=== PATIENT | female | born 1940 | race Hispanic/Latino ===

== ENCOUNTER 2018-04-08 13:06 | Emergency (ER) | payer OTHER ==
--- OUTSIDE RECORDS SUMMARY | 2018-04-08 13:09 | XMS REPORT ---
:1940 Author Organization eClinicalWorks Care Team Providers Name Role Phone Leonel Kal Provider Role Unavailable Allergies No Known Allergies Problems Problem Type Condition Code Onset Dates Condition Status Assessment Cataract of right eye, unspecified H26.9 Active cataract type Problem Hyperlipidemia, mixed E78.2 Active Problem Cataract of right eye, unspecified H26.9 Active cataract type Problem Diabetes type 2, uncontrolled E11.65 Active Assessment Hyperlipidemia, mixed E78.2 Active Assessment Thrombocytopenia D69.6 Active Problem Thrombocytopenia D69.6 Active Assessment Diabetes type 2, uncontrolled E11.65 Active Medications Medication Code Code Instructions Start End Date Status Dosage System Date [facility] 62166350015 81 MG Orally Active 1 tablet Once a day Crestor [facility] 41485140667 10 MG Orally Active 1 tablet Once a day Metformin HCl [facility] 53805246586 1000 MG Orally Active 1 tablet Twice a day with meals Results No Known Results Summary Purpose eClinicalWorks Submission
--- OUTSIDE RECORDS SUMMARY | 2018-04-08 13:09 | XMS REPORT ---
:1940 Author Organization eClinicalWorks Care Team Providers Name Role Phone Monroe Castanedah Provider Role Unavailable Allergies, Adverse Reactions, Alerts Substance Reaction Event Type N.K.D.A. Info Not Available Non Drug Allergy Problems Problem Type Condition Code Onset Dates Condition Status Assessment Thrombocytopenia D69.6 Active Assessment Cataract of right eye, unspecified H26.9 Active cataract type Problem Hyperlipidemia, mixed E78.2 Active Problem Cataract of right eye, unspecified H26.9 Active cataract type Problem Diabetes type 2, uncontrolled E11.65 Active Assessment Diabetes type 2, uncontrolled E11.65 Active Assessment Hyperlipidemia, mixed E78.2 Active Problem Thrombocytopenia D69.6 Active Medications Medication Code Code Instructions Start End Date Status Dosage System Date Metformin HCl [facility] 77628449595 1000 MG Orally Active 1 tablet Twice a day with meals Crestor [facility] 75839628005 10 MG Orally Active 1 tablet Once a day Aspir-81 [facility] 69386250415 81 MG Orally Active 1 tablet Once a day Results No Known Results Summary Purpose eClinicalWorks Submission
[2018-04-08 14:23] LABS: Absolute Lymphocytes (CBC) 1.9 K/uL (0.7-4.9); Absolute Monocytes 0.5 K/uL (0.1-1.3); Absolute Neutrophil 3.5 K/uL (1.8-8.0); Basophils % 0.5 % (0-1.3); Eosinophils % 1.7 % (0-4.4); Hematocrit 42.9 % (36.0-45.0); MCH 31.9 pg (27.0-35.0); MCV 93.3 fL (80-100); MPV 10.6 fL (7.6-11.3); Monocytes % 7.5 % (3.3-12.3); RBC Red Blood Cell Count 4.59 M/uL (3.86-4.86)
[2018-04-08 14:32] LABS: Potassium 4.2 mmol/L (3.5-5.1)
--- NOTE | 2018-04-08 14:41 | RAD REPORT ---
EXAM DESCRIPTION: RAD - Foot Right 3 View - 04/08/2018 2:27 pm CLINICAL HISTORY: SWELLING Soft tissue wound COMPARISON: No comparisons FINDINGS: Small calcaneal spurs are present. No fracture, dislocation or radiographic finding to ind icate osteomyelitis. No soft tissue gas.
[2018-04-08] MEDS ORDERED: CLINDAMYCIN 600MG/D5W 600 MG/50 ML BAG IV ONE (14:42)
--- NOTE | 2018-04-08 14:58 | EDPHYS ---
Physician Documentation [facility] Name: Mary Das Age: 77 yrs Sex: Female : 1940 Arrival Date: 04/08/2018 Time: 13:09 Bed 19 Private MD: Jessica Weeks ED Physician Henrique Aleman HPI: 04/08 13:33 This 77 yrs old Female presents to ER via Ambulatory with complaints of Foot cp Pain - INFECTION. 13:33 The patient presents with swelling, tenderness. The complaints affect the dorsum of cp right foot. 13:33 Context: resulted from an unknown cause, the patient can fully bear weight, the patient cp is able to ambulate, Problem is a result from a previous injury: No. 13:33 Onset: The symptoms/episode began/occurred 3 day(s) ago. Associated signs and symptoms: cp Pertinent positives: swelling, warmth, Pertinent negatives calf tenderness, fever, numbness, weakness. Treatment prior to arrival includes: no previous treatment. Historical: - Allergies: 13:14 No Known Allergies; hb - PMHx: 13:14 Diabetes - NIDDM; hb - Immunization history:: Adult Immunizations up to date. - Social history:: Smoking status: Patient/guardian denies using tobacco. - Ebola Screening: : No symptoms or risks identified at this time. ROS: 13:40 Constitutional: Negative for body aches, chills, fever, poor PO intake. cp 13:40 Eyes: Negative for injury, pain, redness, and discharge. cp 13:40 Cardiovascular: Negative for chest pain, edema, palpitations. 13:40 Respiratory: Negative for cough, shortness of breath, wheezing. 13:40 Abdomen/GI: Negative for abdominal pain, nausea, vomiting, and diarrhea. 13:40 MS/extremity: Negative for injury or acute deformity, decreased range of motion. 13:40 Skin: Positive for abscess, cellulitis, of the web space between right fourth and fifth toes. 13:40 All other systems are negative. Exam: 13:47 Constitutional: The patient appears in no acute distress, alert, awake, non-toxic, well cp developed, well nourished. 13:47 Head/Face: Normocephalic, atraumatic. cp 13:47 Eyes: Periorbital structures: appear normal, Conjunctiva: normal, no exudate, no injection, Sclera: no appreciated abnormality, Lids and lashes: appear normal, bilaterally. 13:47 ENT: External ear(s): are unremarkable, Nose: is normal, Mouth: Lips: moist, Posterior pharynx: is normal, airway is patent. 13:47 Chest/axilla: Inspection: normal, Palpation: is normal, no crepitus, no tenderness. 13:47 Cardiovascular: Rate: normal, Rhythm: regular, Pulses: Pulses are 2+ in right dorsalis pedis artery and left dorsalis pedis artery. 13:47 Respiratory: the patient does not display signs of respiratory distress, Respirations: normal, no use of accessory muscles, no retractions, no splinting, no tachypnea, labored breathing, is not present, Breath sounds: are clear throughout, no decreased breath sounds, no stridor, no wheezing. 13:47 Abdomen/GI: Exam negative for discomfort, distension, guarding, Inspection: abdomen appears normal. 13:47 Skin: abscess, that is small, of the dorsal side web space of right fourth and fifth toes, with surrounding cellulitis. Vital Signs: 13:12 BP 147 / 62; Pulse 87; Resp 16; Temp 97.9; Pulse Ox 100% on R/A; Pain 0/10; hb 14:16 BP 147 / 70; Pulse 66; Resp 16; Pulse Ox 99% ; Pain 0/10; em MDM: 13:18 Patient medically screened. cp 14:00 Differential diagnosis: osteomyelitis, cellulitis, abscess. cp 14:55 Data reviewed: vital signs, nurses notes, lab test result(s), radiologic studies, plain cp films. 14:55 Test interpretation: by ED physician or midlevel provider: plain radiologic studies. cp 04/08 13:33 Order name: Wound Culture cp 04/08 13:33 Order name: CBC with Diff cp 04/08 13:33 Order name: XRAY Foot RIGHT 3 View cp 04/08 13:33 Order name: BMP cp 04/08 14:48 Order name: CBC with Automated Diff; Complete Time: 14:51 EDMS 04/08 14:49 Order name: Basic Metabolic Panel; Complete Time: 14:51 EDMS 04/08 14:51 Interpretation: Normal except: CL 108; GLUC 143; GFR 82. cp 04/08 13:33 Order name: IV; Complete Time: 14:17 cp 04/08 14:49 Order name: RAD; Complete Time: 14:51 EDMS Administered Medications: 14:44 Drug: Clindamycin 600 mg Route: IVPB; Infused Over: 30 mins; Site: right antecubital; em 15:16 Follow up: Response: No adverse reaction; IV Status: Completed infusion; IV Intake: 50mlem Disposition: 04/08/18 14:58 Discharged to Home. Impression: Cutaneous abscess of right foot, Cellulitis of right lower limb - Right Foot. - Condition is Stable. - Discharge Instructions: Skin Abscess, Cellulitis, Adult. - Prescriptions for Clindamycin HCl 300 mg Oral Capsule - take 1 capsule by ORAL route every 6 hours for 10 days; 40 capsule. Bactrim DS 800- 160 mg Oral Tablet - take 1 tablet by ORAL route every 12 hours for 10 days; 20 tablet. - Medication Reconciliation Form, Thank You Letter, Antibiotic Education, Prescription Opioid Use form. - Follow up: Private Physician; When: 2 - 3 days; Reason: Wound Recheck. - Problem is new. - Symptoms have improved. Addendum: 04/10/2018 07:24 Co-signature as Attending Physician, Henrique Aleman MD I agree with the assessment and c yang plan of care. Signatures: Dispatcher [employer] EDHenrique Amador MD MD cha Munoz, Edgar, GOLD NIB GRINDER GOLD NIB GRINDER em Henrique Dickson, PA PA Gita Bullard, RN RN Corrections: (The following items were deleted from the chart) 04/08 15:24 14:58 04/08/2018 14:58 Discharged to Home. Impression: Cutaneous abscess of right foot; em Cellulitis of right lower limb - Right Foot. Condition is Stable. Forms are Medication Reconciliation Form, Thank You Letter, Antibiotic Education, Prescription Opioid Use. Follow up: Private Physician; When: 2 - 3 days; Reason: Wound Recheck. Problem is new. Symptoms have improved. cp
--- NOTE | 2018-04-08 14:58 | ER ---
Nurse's Notes [facility] Name: Mary Das Age: 77 yrs Sex: Female : 1940 Arrival Date: 04/08/2018 Time: 13:09 Bed 19 Private MD: Jessica Weeks Diagnosis: Cutaneous abscess of right foot;Cellulitis of right lower limb-Right Foot Presentation: 04/08 13:12 Presenting complaint: Wound on top of right root x 3 days. Denies injury. Transition of hb care: patient was not received from another setting of care. Onset of symptoms was April 08, 2018. Risk Assessment: Do you want to hurt yourself or someone else? Patient reports no desire to harm self or others. Initial Sepsis Screen: Does the patient meet any 2 criteria? No. Patient's initial sepsis screen is negative. Does the patient have a suspected source of infection? No. Patient's initial sepsis screen is negative. Care prior to arrival: None. 13:12 Method Of Arrival: Ambulatory hb 13:12 Acuity: HANS 4 hb Historical: - Allergies: 13:14 No Known Allergies; hb - PMHx: 13:14 Diabetes - NIDDM; hb - Immunization history:: Adult Immunizations up to date. - Social history:: Smoking status: Patient/guardian denies using tobacco. - Ebola Screening: : No symptoms or risks identified at this time. Screenin:50 Abuse screen: Denies threats or abuse. Nutritional screening: No deficits noted. em Tuberculosis screening: No symptoms or risk factors identified. Fall Risk None identified. Assessment: 13:50 General: Appears in no apparent distress. comfortable, Behavior is calm, cooperative, em Denies fever. Pain: Denies pain. Neuro: Level of Consciousness is awake, alert, obeys commands, Oriented to person, place, time, situation. Cardiovascular: Denies chest pain, Capillary refill < 3 seconds Patient's skin is warm and dry. Respiratory: Airway is patent Respiratory effort is even, unlabored, Respiratory pattern is regular, symmetrical. GI: Patient currently denies nausea, vomiting. : No signs and/or symptoms were reported regarding the genitourinary system. EENT: No signs and/or symptoms were reported regarding the EENT system. Derm: Skin is intact, Skin is pink, warm \T\ dry. Abscess located on dorsum of right foot is dime sized, has purulent drainage, is hot to touch, is red. Musculoskeletal: 14:00 Reassessment: I agree with previous assessment. hb 14:55 Reassessment: Patient appears in no apparent distress at this time. Patient and/or em family updated on plan of care and expected duration. Pain level reassessed. Patient is alert, oriented x 3, equal unlabored respirations, skin warm/dry/pink. pt will be discharged after completion of antibiotics Patient denies pain at this time. Vital Signs: 13:12 BP 147 / 62; Pulse 87; Resp 16; Temp 97.9; Pulse Ox 100% on R/A; Pain 0/10; hb 14:16 BP 147 / 70; Pulse 66; Resp 16; Pulse Ox 99% ; Pain 0/10; em ED Course: 13:09 Patient arrived in ED. sb2 13:10 Jessica Weeks MD is Private Physician. sb2 13:12 Triage completed. hb 13:14 Arm band placed on left wrist. hb 13:18 Henrique Dickson PA is PHCP. cp 13:18 Henrique Aleman MD is Attending Physician. cp 13:40 Willam Caceres LVN is Primary Nurse. em 13:50 Patient has correct armband on for positive identification. Bed in low position. Call em light in reach. Adult w/ patient. 13:55 Inserted saline lock: 20 gauge in right antecubital area, using aseptic technique. em Blood collected. 13:55 Initial lab(s) drawn, by me, sent to lab. Wound culture swab sent to lab. em 15:15 No provider procedures requiring assistance completed. em 15:23 IV discontinued, intact, bleeding controlled, No redness/swelling at site. Pressure em dressing applied. Administered Medications: 14:44 Drug: Clindamycin 600 mg Route: IVPB; Infused Over: 30 mins; Site: right antecubital; em 15:16 Follow up: Response: No adverse reaction; IV Status: Completed infusion; IV Intake: 50mlem Intake: 15:16 IV: 50ml; Total: 50ml. em Outcome: 14:58 Discharge ordered by . cp 15:23 Discharged to home ambulatory, with family. em 15:23 Condition: good 15:23 Discharge instructions given to patient, family, Instructed on discharge instructions, follow up and referral plans. medication usage, Demonstrated understanding of instructions, follow-up care, medications, Prescriptions given X 2. 15:24 Patient left the ED. em Signatures: Willam Caceres, RUIZ HAYWARDN em Henrique Dickson PA PA cp Baxter, Heather, RN RN Melissa Tao sb2
== END 2018-04-08 15:24 | disposition home or self-care (01) ==
LOC: ER 13:06
DX: L02.611 Cutaneous abscess of right foot (principal); L03.115 Cellulitis of right lower limb; M77.31 Calcaneal spur, right foot
CPT/HCPCS: 36415; 80048; 85025; 87070; 87205; 96365; 99284

== ENCOUNTER 2022-10-23 10:50 | Emergency (ER) | payer OTHER ==
--- OUTSIDE RECORDS SUMMARY | 2022-10-23 10:53 | XMS REPORT | Continuity of Care Document ---
:1940 Author Organization [facility] t Address [address] [place] [address] Care Team Providers Name Role Phone Kal Castaneda Attending Clinician Unavailable Payers Payer Name Policy Type Policy Number Effective Date Expiration Date S [facility] [id number] 2017 [facility] 00:00:00 [facility] MEDICARE MB [id number] 2019 [facility] NOVITAS 00:00:00 [facility] Problems Condition Condition Condition Status Onset Resolution Last Treating Co mments Source Name Details Category Date Date Treatment Clinician Date Mixed Hyperlipid Problem Commo n hyperlipid emia, Spirit emia mixed [facility] Type II Diabetes Problem Common diabetes type 2, Spirit mellitus uncontroll - [facility] I uncontroll ed [facility] [id number] Thrombocyt Problem Co mmon openia [facility] [id number] Cataract Problem Comm on of right Spirit eye, - [facility] unspecifie [facility] cataract [facility] Allergies, Adverse Reactions, Alerts This patient has no known allergies or adverse reactions. Social History Social Habit Start Date Stop Date Quantity Comments Source History of Tobacco Use Co mmon [facility] Sex Assigned At Com [facility] Smoking Status Start Date Stop Date Source Never Smoker [facility] Medications Ordered Filled Start Stop Current Ordering Indication Dosage Frequency Signature Comments Components Source Medication Medication Date Date Medication? Clinician (SIG) Name Name Didi Tolbert Yes Kal 1 tablet Com mon Castaneda [facility] - [facility] Metformin Metformin Yes Kal TAKE 1 C ommon HCl HCl Castaneda TABLET BY Spirit MOUTH - [facility] TWICE St DAILY WITH [facility] Rosuvastati Rosuvastati Yes Kal TAKE 1 Common n Calcium n Calcium Castaneda TABLET BY Spirit MOUTH - [facility] EVERY DAY [facility] Metformin Metformin Yes Kal 1 tablet Common HCl HCl Castaneda with meals Spirit [facility] Crestor 5 Crestor 5 No 1{table QD Crestor 5 MG MG t} MG metFORMIN metFORMIN No 1{table BID metFORMIN HCl 1000 MG HCl 1000 MG t_with_ HCl 1000 meals} MG metFORMIN metFORMIN No metFORMIN HCl 1000 MG HCl 1000 MG HCl 1000 MG Crestor 10 Crestor 10 No 1{table QD Crestor 10 MG MG t} MG metFORMIN metFORMIN No 1{table BID metFORMIN HCl 1000 MG HCl 1000 MG t_with_ HCl 1000 meals} MG Crestor 10 Crestor 10 No 1{table QD Crestor 10 MG MG t} MG Rosuvastati Rosuvastati No Rosuvastat n Calcium n Calcium in Calcium 10 MG 10 MG 10 MG Rosuvastati Rosuvastati No Rosuvastat n Calcium n Calcium in Calcium 10 MG 10 MG 10 MG Crestor 10 Crestor 10 No 1{table QD Crestor 10 MG MG t} MG metFORMIN metFORMIN No 1{table BID metFORMIN HCl 1000 MG HCl 1000 MG t_with_ HCl 1000 meals} MG Rosuvastati Rosuvastati No Rosuvastat n Calcium n Calcium in Calcium 10 MG 10 MG 10 MG Crestor 10 Crestor 10 No 1{table QD Crestor 10 MG MG t} MG metFORMIN metFORMIN No 1{table BID metFORMIN HCl 1000 MG HCl 1000 MG t_with_ HCl 1000 meals} MG Rosuvastati Rosuvastati No Rosuvastat n Calcium n Calcium in Calcium 10 MG 10 MG 10 MG Crestor 10 Crestor 10 No 1{table QD Crestor 10 MG MG t} MG metFORMIN metFORMIN No 1{table BID metFORMIN HCl 1000 MG HCl 1000 MG t_with_ HCl 1000 meals} MG metFORMIN metFORMIN No 1{table BID metFORMIN HCl 1000 MG HCl 1000 MG t_with_ HCl 1000 meals} MG Crestor 10 Crestor 10 No 1{table QD Crestor 10 MG MG t} MG metFORMIN metFORMIN No 1{table BID metFORMIN HCl 1000 MG HCl 1000 MG t_with_ HCl 1000 meals} MG Crestor 10 Crestor 10 No 1{table QD Crestor 10 MG MG t} MG metFORMIN metFORMIN No 1{table BID metFORMIN HCl 1000 MG HCl 1000 MG t_with_ HCl 1000 meals} MG Crestor 10 Crestor 10 No 1{table QD Crestor 10 MG MG t} MG Vital Signs Vital Name Observation Time Observation Value Comments Source height 2022-02-17 13:50:00 64 [in_i] Common [facility] weight 2022-02-17 13:50:00 124.3 [lb_av] [facility] temperature 2022-02-17 13:50:00 97.6 [degF] [facility] bmi 2022-02-17 13:50:00 21.33 kg/m2 [facility] oximetry 2022-02-17 13:50:00 98 % [facility] respiratory rate 2022-02-17 13:50:00 18 /min Comm on [facility] blood pressure 2022-02-17 13:50:00 129 mm[Hg] Common [facility] - systolic [facility] blood pressure 2022-02-17 13:50:00 61 mm[Hg] Common [facility] - diastolic [facility] height 2021-10-15 14:40:00 64 [in_i] [facility] weight 2021-10-15 14:40:00 121.5 [lb_av] [facility] temperature 2021-10-15 14:40:00 98.1 [degF] [facility] bmi 2021-10-15 14:40:00 20.85 kg/m2 [facility] oximetry 2021-10-15 14:40:00 100 % [facility] respiratory rate 2021-10-15 14:40:00 18 /min Comm on [facility] blood pressure 2021-10-15 14:40:00 137 mm[Hg] Common [facility] - systolic [facility] blood pressure 2021-10-15 14:40:00 60 mm[Hg] Common [facility] - diastolic [facility] height 2021-10-15 14:30:00 64 [in_i] Common S pirit - [facility] weight 2021-10-15 14:30:00 121.5 [lb_av] [facility] temperature 2021-10-15 14:30:00 98.1 [degF] Common S pirit - [facility] bmi 2021-10-15 14:30:00 20.85 kg/m2 Common S pirit [facility] oximetry 2021-10-15 14:30:00 100 % Common S pirit [facility] respiratory rate 2021-10-15 14:30:00 18 /min Comm on [facility] blood pressure 2021-10-15 14:30:00 137 mm[Hg] Common [facility] - systolic [facility] blood pressure 2021-10-15 14:30:00 60 mm[Hg] Common [facility] - diastolic [facility] height 2021-06-16 10:30:00 64 [in_i] [facility] 2021-06-16 10:30:00 118.0 [lb_av] [facility] temperature 2021-06-16 10:30:00 97.7 [degF] Common S pirit [facility] bmi 2021-06-16 10:30:00 20.25 kg/m2 Common S pirit [facility] oximetry 2021-06-16 10:30:00 99 % Common S pirit [facility] respiratory rate 2021-06-16 10:30:00 18 /min Comm on [facility] blood pressure 2021-06-16 10:30:00 132 mm[Hg] Common Spirit - systolic [facility] blood pressure 2021-06-16 10:30:00 61 mm[Hg] Common [facility] - diastolic [facility] height 2021-02-10 10:10:00 64 [in_i] Common S pirit [facility] weight 2021-02-10 10:10:00 122.5 [lb_av] Common [facility] temperature 2021-02-10 10:10:00 97.3 [degF] Common [facility] bmi 2021-02-10 10:10:00 21.02 kg/m2 Common [facility] oximetry 2021-02-10 10:10:00 99 % Common [facility] respiratory rate 2021-02-10 10:10:00 17 /min Comm on [facility] blood pressure 2021-02-10 10:10:00 134 mm[Hg] Common [facility] systolic [facility] blood pressure 2021-02-10 10:10:00 71 mm[Hg] Common [facility] diastolic [facility] Procedures This patient has no known procedures. Encounters Start End Encounter Admission Attending Care Care Encounter Source Date/Time Date/Time Type Type Clinicians Facility Department ID 2022-08-16 Outpatient Castaneda, STLMLC STLMLC [id number] Common 08:45:00 Kal [id number] [facility] 2022-06-16 Outpatient Castaneda, STLMLC STLMLC [id number] Common 09:52:00 Kal [id number] [facility] 2021-06-03 Outpatient Castaneda, STLMLC STLMLC [id number] Common 13:56:26 Kal [id number] [facility] 2021-06-03 Outpatient Castaneda, STLMLC STLMLC [id number] Common 12:06:24 Kal [id number] [facility] 2021-06-03 Outpatient Castaneda, STLMLC STLMLC [id number] Common 11:22:33 Kal [id number] [facility] 2022-02-17 2022-02-17 OFFICE STLMLC STLMLC [id number] Co mmon 00:00:00 00:00:00 VISIT [facility] 4 [facility] 2021-10-19 2021-10-19 (TEL) STLMLC STLMLC [id number] Co mmon 00:00:00 00:00:00 [facility] 2021-10-15 2021-10-15 SUB ANNUAL STLMLC STLMLC [id number] Common 00:00:00 00:00:[address] [facility] WELLNESS - CHI VISIT [facility] 2021-10-15 2021-10-15 OFFICE STLMLC STLMLC [id number] Co mmon 00:00:00 00:00:[address] [facility] ESTAB PT - CHI LEVEL 4 [facility] 2021-08-13 2021-08-13 (TEL) STLMLC STLMLC [id number] Co mmon 00:00:00 00:00:00 [facility] 2021-07-23 2021-07-23 (TEL) STLMLC STLMLC [id number] Co mmon 00:00:00 00:00:00 [facility] 2021-06-16 2021-06-16 OFFICE STLMLC STLMLC [id number] Co mmon 00:00:00 00:00:00 VISIT EST Spir it PT LEVEL 3 - [facility] 2021-02-10 2021-02-10 OFFICE STLMLC STLMLC [id number] Co mmon 00:00:00 00:00:[address] [facility] ESTAB PT - CHI LEVEL 4 [facility] 2020-10-07 2020-10-07 Outpatient STLMLC STLMLC [id number] Common 00:00:00 00:00:00 [facility] 2020-10-07 2020-10-07 Outpatient STLMLC STLMLC [id number] Common 00:00:00 00:00:00 [facility] 2020-03-27 2020-03-27 Outpatient STLMLC STLMLC [id number] Common 00:00:00 00:00:00 [facility] 2019-09-26 2019-09-26 [id number] Common 13:30:00 13:30:[address] Family - [facility] 2019-09-26 2019-09-26 [facility] [id number] Common 13:30:00 13:30:[address] [facility] 2019-09-19 2019-09-19 [facility] [id number] Common 14:34:00 14:34:[address] [facility] 2019-03-14 2019-03-14 [facility] [id number] Common 09:15:00 09:15:[address] [facility] 2018-12-15 2018-12-15 [facility] [id number] Common 09:30:00 09:30:[address] [facility] 2018-08-16 2018-08-16 [facility] 23 Common 09:30:00 09:30:[address] [facility] 2018-04-17 2018-04-17 [facility] [id number] Common 10:30:00 10:30:[address] [facility] 2017-12-16 2017-12-16 [facility] [id number] Common 09:30:00 09:30:[address] [facility] 2017-08-16 2017-08-16 [facility] [id number] Common 09:30:00 09:30:[address] [facility] Results This patient has no known results.
[2022-10-23 11:46] LABS: Absolute Lymphocytes (CBC) 1.6 K/uL (0.7-4.9); Hematocrit 41.4 % (36.0-45.0); Lymphocytes % 23.4 % (15.3-44.8); MCV 94.4 fL (80-100); MPV 9.1 fL (7.6-11.3); RBC Red Blood Cell Count 4.38 M/uL (3.86-4.86)
[2022-10-23 11:51] LABS: Protime INR 1.01
[2022-10-23] MEDS ORDERED: NA CHLORIDE 0.9% 1,000 ML ONE (11:53)
[2022-10-23] MEDS ORDERED: MECLIZINE HCL 12.5 MG TAB ONE (11:53)
[2022-10-23 12:05] LABS: Bilirubin Direct 0.1 mg/dL (0-0.2); Bilirubin Indirect, Calculated 0.4 mg/dL (0.2-0.8); Bilirubin Total 0.5 mg/dL (0.2-1.0); Magnesium 2.1 mg/dL (1.6-2.4); Potassium 3.4 mEq/L (3.5-5.1); Protein, Total 7.6 g/dL (6.4-8.2); Troponin High Sensitivity 5.1 pg/mL (<58.9)
--- NOTE | 2022-10-23 12:06 | RAD REPORT ---
EXAM DESCRIPTION: RAD - Chest Single View - 10/23/2022 11:59 am CLINICAL HISTORY: dizziness Chest pain. COMPARISON: CHEST SINGLE VIEW dated 10/29/2009 FINDINGS: Portable technique limits examination quality. The lungs are emphysematous but grossly clear. The heart is upper limit of normal in size. No displac ed fractures. IMPRESSION: No acute intrathoracic process suspected.
--- NOTE | 2022-10-23 12:31 | RAD REPORT ---
EXAM DESCRIPTION: CT - Head Brain Wo Cont - 10/23/2022 12:22 pm CLINICAL HISTORY: DIZZINESS Headache, drowsiness COMPARISON: Head angio dated 10/23/2022 TECHNIQUE: All CT scans are performed using dose optimization technique as appropriate and may inclu de automated exposure control or mA/KV adjustment according to patient size. FINDINGS: No intracranial hemorrhage, hydrocephalus or extra-axial fluid collection.Mild generalized brain atrophy. 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 No areas of brain edema or evidence of midline shift. Left vertebral atherosclerosis. The paranasal sinuses and mastoids are clear. The calvarium is intact. IMPRESSION: No acute intracranial abnormality.
--- NOTE | 2022-10-23 12:32 | RAD REPORT ---
EXAM DESCRIPTION: CT - Head angio - 10/23/2022 12:24 pm CLINICAL HISTORY: DIZZINESS Headache, drowsiness COMPARISON: No comparisons TECHNIQUE: CT angiography of the head was performed with MIPs. All CT scans are performed using dose optimization technique as appropriate and may include automated exposure control or mA/KV adjustment according to patient size. FINDINGS: No evidence of large vessel occlusion. No evidence of aneurysm is detected. No flow-limiti ng stenosis or vascular malformation identified. Antegrade flow is seen in the vertebral arteries. The vertebral arteries are codominant. The visualized dural venous sinuses are patent. IMPRESSION: No significant flow abnormality is detected.
--- NOTE | 2022-10-23 12:35 | RAD REPORT ---
EXAM DESCRIPTION: CT - Neck Angio - 10/23/2022 12:24 pm CLINICAL HISTORY: dizziness Headache, drowsiness. COMPARISON: No comparisons TECHNIQUE: CT angiography of the neck vessels was performed with MIPs. All CT scans are performed using dose optimization technique as appropriate and may include automated exposure control or mA/KV adjustment according to patient size. FINDINGS: A left aortic arch is identified with normal three vessel configuration of the great vesse ls. No significant flow abnormality is seen of the common carotid bilaterally. Small calcified plaque in both bulbs. No significant stenosis is identified involving the cervical se gments of both internal carotid arteries. Normal flow is seen within both vertebral arteries. IMPRESSION: No significant flow abnormality of the neck vessels is identified. NASCET criteria used. Mild 0-49% stenosis Moderate 50-69% stenosis Severe 70-99% stenosis
[2022-10-23 12:50] LABS: Urine Bilirubin NEGATIVE (Negative); Urine Blood Negative (Negative); Urine Clarity Clear (Clear); Urine Color Colorless (Yellow); Urine Glucose NEGATIVE (Negative); Urine Protein NEGATIVE (Negative); Urine Urobilinogen Normal (Normal); Urine pH 6.5 (5.0-7.0)
--- NOTE | 2022-10-23 13:18 | EDPHYS ---
Physician Documentation [facility] Name: Mary Das Age: 81 yrs Sex: Female : 1940 Arrival Date: 10/23/2022 Time: 10:50 Bed 19 Private MD: ED Physician Justin Escobar HPI: 10/23 13:13 This 81 yrs old Female presents to ER via Wheelchair with complaints of rn Dizziness, General Weakness, Fall Injury, BLOOD SUGAR ISSUES, FALL INJURY W/NO LOC. 13:13 The patient presents with dizziness, feeling faint, feeling off balance. Onset: The rn symptoms/episode began/occurred 4 day(s) ago. Context: occurred at an unknown location, occurred while the patient was standing. Modifying factors: The symptoms are alleviated by lying down, the symptoms are aggravated by standing up, changing position. Associated signs and symptoms: Pertinent negatives: abdominal pain, chest pain, confusion, diaphoresis, headache, seizure, shortness of breath, syncope, tingling, vomiting. Severity of symptoms: At their worst the symptoms were moderate in the emergency department the symptoms have improved. The patient has not experienced similar symptoms in the past. The patient has not recently seen a physician. Patient and family report dizziness, intermittent for 4 days, fell yesterday due to dizziness, no LOC, no head injury, no trauma noted. No fever/nausea/vomiting/diarrhea. No cough. No sob. Reports glucose 200s. No focal neuro complaint. . Historical: - Allergies: 11:28 No Known Allergies; kr3 - PMHx: 11:28 Diabetes - NIDDM; Hypercholesterolemia; kr3 - Immunization history:: Adult Immunizations up to date. - Social history:: Smoking status: Patient denies any tobacco usage or history of. - Immunization history: Last tetanus immunization: < 10 years ago. - Family history:: not pertinent. - Hospitalizations: : No recent hospitalization is reported. ROS: 13:13 Constitutional: Negative for fever, chills, and weight loss, Eyes: Negative for injury, rn pain, redness, and discharge, Neck: Negative for injury, pain, and swelling, Cardiovascular: Negative for chest pain, palpitations, and edema, Respiratory: Negative for shortness of breath, cough, wheezing, and pleuritic chest pain, Abdomen/GI: Negative for abdominal pain, nausea, vomiting, diarrhea, and constipation, Back: Negative for injury and pain, : Negative for injury, bleeding, discharge, and swelling, MS/Extremity: Negative for injury and deformity, Skin: Negative for injury, rash, and discoloration, Neuro: Negative for headache, numbness, tingling, and seizure. Exam: 13:13 Constitutional: This is a well developed, well nourished patient who is awake, alert, rn and in no acute distress. Able to sit up in bed without ataxia or assistance. Head/Face: Normocephalic, atraumatic. Eyes: Pupils equal round and reactive to light, extra-ocular motions intact. Neck: No Meningismus. Cardiovascular: Regular rate and rhythm. No pulse deficits. Respiratory: No increased work of breathing, no retractions or nasal flaring. Abdomen/GI: Soft, non-tender Skin: Warm, dry MS/ Extremity: Pulses equal, no cyanosis Neuro: Awake and alert, GCS 15, oriented to person, place, time, and situation. Cranial nerves II-XII grossly intact. Motor strength 5/5 in all extremities. Sensory grossly intact. Cerebellar exam normal. No truncal ataxia. Vital Signs: 11:24 BP 163 / 65; Pulse 77; Resp 18; Temp 97.9; Pulse Ox 99% ; Weight 52.16 kg; Height 5 ft. kr3 4 in. ; Pain 0/10; 12:42 BP 147 / 63; Pulse 70; Resp 16; Pulse Ox 100% on R/A; sg5 13:21 BP 160 / 60; Pulse 69; Resp 16; Pulse Ox 98% on R/A; sg5 11:24 Body Mass Index 19.74 (52.16 kg, 162.56 cm) kr3 11:24 Pain Scale: Adult kr3 [place]ora Coma Score: 12:41 Eye Response: spontaneous(4). Motor Response: obeys commands(6). Verbal Response: sg5 oriented(5). Total: 15. Trauma Score (Adult): 12:41 Eye Response: spontaneous(1); Verbal Response: oriented(1); Motor Response: obeys sg5 commands(2); Systolic BP: > 89 mm Hg(4); Respiratory Rate: 10 to 29 per min(4); Holiday Score: 15; Trauma Score: 12 MDM: 10:58 Patient medically screened. rn 13:13 Differential diagnosis: cardiac arrhythmia, CVA, generalized weakness, GI bleed, rn hyperventilation, hypovolemia, idiopathic dizziness, near-syncope, TIA, vertigo. Data reviewed: vital signs, nurses notes, lab test result(s), EKG, radiologic studies, CT scan, and as a result, I will discharge patient. Counseling: I had a detailed discussion with the patient and/or guardian regarding: the historical points, exam findings, and any diagnostic results supporting the discharge/admit diagnosis, lab results, radiology results, the need for outpatient follow up, to return to the emergency department if symptoms worsen or persist or if there are any questions or concerns that arise at home. Response to treatment: the patient's symptoms have markedly improved after treatment, and as a result, I will discharge patient. Special discussion: I discussed with the patient/guardian in detail that at this point there is no indication for admission to the hospital. It is understood, however, that if the symptoms persist or worsen the patient needs to return immediately for re-evaluation. Based on the history and exam findings, there is no indication for further emergent testing or inpatient evaluation. I discussed with the patient/guardian the need to see the neurologist for further evaluation of the symptoms. 10/23 11:22 Order name: Basic Metabolic Panel; Complete Time: 12:28 10/23 11:22 Order name: CBC with Diff; Complete Time: 12:28 10/23 11:22 Order name: Hepatic Function; Complete Time: 12:28 10/23 11:22 Order name: Magnesium; Complete Time: 12:28 10/23 11:22 Order name: Protime (+inr); Complete Time: 12:28 rn 10/23 11:22 Order name: Ptt, Activated; Complete Time: 12:28 10/23 11:22 Order name: Troponin High Sensitivity; Complete Time: 12:28 10/23 11:22 Order name: Urinalysis w/ reflexes; Complete Time: 12:51 rn 10/23 11:25 Order name: Glucose, Ancillary Testing; Complete Time: 12:28 EDMS 10/23 11:22 Order name: CT Head Brain wo Cont; Complete Time: 12:47 10/23 11:22 Order name: Chest Single View XRAY; Complete Time: 12:28 10/23 11:22 Order name: Head Angio CT; Complete Time: 12:47 rn 10/23 11:22 Order name: Neck Angio CT; Complete Time: 12:47 rn 10/23 11:22 Order name: EKG; Complete Time: 11:23 rn 10/23 11:22 Order name: Cardiac monitoring; Complete Time: 12:24 rn 10/23 11:22 Order name: EKG - Nurse/Tech; Complete Time: 12:22 rn 10/23 11:22 Order name: IV Saline Lock; Complete Time: 12:22 rn 10/23 11:22 Order name: Labs collected and sent; Complete Time: 12:22 rn 10/23 11:22 Order name: O2 Per Protocol; Complete Time: 12:24 rn 10/23 11:22 Order name: O2 Sat Monitoring; Complete Time: 12:24 rn 10/23 11:23 Order name: Glucose Level; Complete Time: 12:24 rn Administered Medications: 11:50 Drug: NS 0.9% IV 1000 ml Route: IV; Rate: 1000 ml; Site: right antecubital; sg5 13:04 Follow up: IV Status: Completed infusion; IV Intake: 1000ml sg5 11:50 Drug: Meclizine PO 50 mg Route: PO; sg5 Point of Care Testing: Blood Glucose: 11:29 Blood Glucose: 183 mg/dL; kr3 Ranges: Critical Glucose Levels:Adult <50 mg/dl or >400 mg/dl <40 mg/dl or >180 mg/dl Disposition Summary: 10/23/22 13:17 Discharge Ordered Location: Home rn Problem: new rn Symptoms: have improved rn Condition: Stable rn Diagnosis - Dizziness and giddiness rn Followup: rn - With: Gilmer Gimenez MD - When: As needed - Reason: Recheck today's complaints, Re-evaluation by your physician Discharge Instructions: - Discharge Summary Sheet rn - Dizziness rn - Vertigo rn Forms: - Medication Reconciliation Form rn - Thank You Letter rn - Antibiotic admitted attorneys - Prescription Opioid Use rn Prescriptions: - Meclizine 25 mg Oral Tablet - take 1 tablet by ORAL route every 8 hours As needed; 30 tablet; Refills: 0, rn Product Selection Permitted Signatures: Dispatcher [employer] Justin Boyd MD MD rn Reid, Kelley, RN RN kr3 Plata, Angelic, RN RN sg5
--- NOTE | 2022-10-23 13:18 | ER ---
Nurse's Notes [facility] Name: Mary Das Age: 81 yrs Sex: Female : 1940 Arrival Date: 10/23/2022 Time: 10:50 Bed 19 Private MD: Diagnosis: Dizziness and giddiness Presentation: 10/23 11:24 Chief complaint: Patient's son or daughter states: fell last night backwards from kr3 standing, mom said she put her hands behind her head and did not hit her head. Her blood sugar has been running in the 200's and she has been very unsteady having to hold onto things since Tuesday10/19/22. Coronavirus screen: Vaccine status: Patient reports receiving the 2nd dose of the covid vaccine. Ebola Screen: Patient denies travel to an Ebola-affected area in the 21 days before illness onset. Initial Sepsis Screen: Does the patient meet any 2 criteria? No. Patient's initial sepsis screen is negative. Does the patient have a suspected source of infection? No. Patient's initial sepsis screen is negative. Risk Assessment: Do you want to hurt yourself or someone else? Patient reports no desire to harm self or others. Onset of symptoms was October 19, 2022. 11:24 Method Of Arrival: Wheelchair kr3 11:24 Acuity: HANS 3 kr3 13:32 Care prior to arrival: None. Mechanism of Injury: Fall from standing position. Trauma sg5 event details: Injury occurred: October 22, 2022. Triage Assessment: 11:28 General: Appears in no apparent distress. comfortable, Behavior is calm, cooperative, kr3 appropriate for age. Pain: Denies pain. EENT: No deficits noted. Neuro: Level of Consciousness is awake, alert, obeys commands, Oriented to person, place, time, situation. Cardiovascular: Patient's skin is warm and dry. Respiratory: Airway is patent Respiratory effort is even, unlabored, Respiratory pattern is regular, symmetrical. GI: No signs and/or symptoms were reported involving the gastrointestinal system. : No signs and/or symptoms were reported regarding the genitourinary system. Derm: No signs and/or symptoms reported regarding the dermatologic system. Musculoskeletal: No signs and/or symptoms reported regarding the musculoskeletal system. Trauma Activation: Not Applicable Physician: ED Physician; Name: ; Notified At: ; Arrived At: Physician: General Surgeon; Name: ; Notified At: ; Arrived At: Physician: Radiology; Name: ; Notified At: ; Arrived At: Physician: Respiratory; Name: ; Notified At: ; Arrived At: Physician: Lab; Name: ; Notified At: ; Arrived At: Historical: - Allergies: 11:28 No Known Allergies; kr3 - PMHx: 11:28 Diabetes - NIDDM; Hypercholesterolemia; kr3 - Immunization history:: Adult Immunizations up to date. - Social history:: Smoking status: Patient denies any tobacco usage or history of. - Immunization history: Last tetanus immunization: < 10 years ago. - Family history:: not pertinent. - Hospitalizations: : No recent hospitalization is reported. Screenin:42 [facility] ED Fall Risk Assessment (Adult) History of falling in the last 3 months, sg5 including since admission Yes- single mechanical fall (1 pt). Abuse screen: Denies threats or abuse. Nutritional screening: No deficits noted. Tuberculosis screening: No symptoms or risk factors identified. Primary Survey: 13:31 NO uncontrolled hemorrhage observed. Breathing/Chest: Spontaneous respiratory effort, sg5 equal unlabored respirations, breath sounds clear bilaterally, regular pattern, symmetrical chest rise and fall. Circulation: No external hemorrhage present. Regular and strong central pulse, skin warm/dry/normal color. Disability Pupils are equal, round, reactive to light and accommodation. Exposure/Environment: A warming method has been applied: A warm blanket has been provided to the patient. Reassessment Breathing: Spontaneous respiratory effort, equal unlabored respirations, breath sounds clear bilaterally, regular pattern with symmetrical chest rise and fall. Circulation: No external hemorrhage noted. Regular and strong central pulse, skin warm/dry/normal color. Disability: Pupils Pupils are equal, round, reactive to light and accomodation. Assessment: 11:42 General: Appears in no apparent distress. comfortable, Behavior is calm, cooperative, sg5 appropriate for age, Reports weakness. Pain: Denies pain. Neuro: Level of Consciousness is awake, alert, obeys commands, Oriented to person, place, time, situation, Appropriate for age. Cardiovascular: Capillary refill < 3 seconds Patient's skin is warm and dry. Respiratory: Airway is patent Respiratory effort is even, unlabored. GI: Abdomen is flat, non-distended. : No signs and/or symptoms were reported regarding the genitourinary system. EENT: No signs and/or symptoms were reported regarding the EENT system. Derm: No signs and/or symptoms reported regarding the dermatologic system. Musculoskeletal: Reports weakness in generalized. Vital Signs: 11:24 BP 163 / 65; Pulse 77; Resp 18; Temp 97.9; Pulse Ox 99% ; Weight 52.16 kg; Height 5 ft. kr3 4 in. ; Pain 0/10; 12:42 BP 147 / 63; Pulse 70; Resp 16; Pulse Ox 100% on R/A; sg5 13:21 BP 160 / 60; Pulse 69; Resp 16; Pulse Ox 98% on R/A; sg5 11:24 Body Mass Index 19.74 (52.16 kg, 162.56 cm) kr3 11:24 Pain Scale: Adult kr3 [place] Coma Score: 12:41 Eye Response: spontaneous(4). Motor Response: obeys commands(6). Verbal Response: sg5 oriented(5). Total: 15. Trauma Score (Adult): 12:41 Eye Response: spontaneous(1); Verbal Response: oriented(1); Motor Response: obeys sg5 commands(2); Systolic BP: > 89 mm Hg(4); Respiratory Rate: 10 to 29 per min(4); Devora Score: 15; Trauma Score: 12 ED Course: 10:51 Patient arrived in ED. [id number] 10:58 Justin Escobar MD is Attending Physician. rn 11:28 Triage completed. kr3 11:29 Arm band placed on right wrist. Patient placed in an exam room, on a stretcher. kr3 11:30 Angelic Plata, RN is Primary Nurse. sg5 11:39 Inserted saline lock: 20 gauge in right antecubital area, using aseptic technique. sg5 Blood collected. 11:42 Patient has correct armband on for positive identification. Placed in gown. Bed in low sg5 position. Call light in reach. Side rails up X2. Adult w/ patient. Valuables Left with patient. 12:01 Chest Single View XRAY In Process Unspecified. EDMS 12:24 CT Head Brain wo Cont In Process Unspecified. EDMS 12:[address] In Process Unspecified. EDMS 12:[address] In Process Unspecified. EDMS 13:17 Gilmer Gimenez MD is Referral Physician. rn 13:22 IV discontinued. sg5 13:31 Patient maintains SpO2 saturation greater than 95% on room air. sg5 13:32 No provider procedures requiring assistance completed. sg5 13:33 Thermoregulation: warm blanket given to patient. sg5 Administered Medications: 11:50 Drug: NS 0.9% IV 1000 ml Route: IV; Rate: 1000 ml; Site: right antecubital; sg5 13:04 Follow up: IV Status: Completed infusion; IV Intake: 1000ml sg5 11:50 Drug: Meclizine PO 50 mg Route: PO; sg5 Medication: 13:33 VIS not applicable for this client. sg5 Point of Care Testing: Blood Glucose: 11:29 Blood Glucose: 183 mg/dL; kr3 Ranges: Intake: 12:41 PO: 30ml; IV: 500ml (IV Fluid); Total: 530ml. sg5 13:04 IV: 1000ml; Total: 1530ml. sg5 Output: 12:41 Urine: 450ml (Voided); Total: 450ml. sg5 Outcome: 13:17 Discharge ordered by . rn 13:31 Discharged to home with family. sg5 13:31 Condition: good 13:31 Discharge instructions given to patient, Instructed on discharge instructions, follow up and referral plans. 13:31 Patient's length of stay was not longer than 2 hours. 13:33 Patient left the ED. sg5 Signatures: Dispatcher [employer] EDMS Justin Escobar MD MD rn Jeffries, Jennifer [email or web address] Nevaeh Mcneill RN RN kr3 Angelic Plata RN RN sg5
[2022-10-23 13:48] VITALS: TEMP 97.9
[2022-10-23 14:00] VITALS: BP 160/60; O2SAT 98
--- NOTE | 2022-10-25 17:54 | EKG ---
Test Date: 2022-10-23 Test Time: 11:39:24 Floor Worker: CHRISTINA MEASUREMENT RESULTS: Intervals: Rate: 75 IA: 124 QRSD: 70 QT: 378 QTc: 422 [place]: P: 56 IA: 124 QRS: 47 T: 36 INTERPRETIVE STATEMENTS: Normal sinus rhythm Normal ECG Compared to ECG 10/29/2009 07:55:37 No significant changes Electronically Signed On 10-25-22 17:50:27 CDT by Sandro Obrien
== END 2022-10-23 13:33 | disposition home or self-care (01) ==
LOC: ER 10:50
DX: R42 Dizziness and giddiness (principal); E11.9 Type 2 diabetes mellitus without complications; E78.00 Pure hypercholesterolemia, unspecified
CPT/HCPCS: 93005; 85025; 80048; 36415; 83735; 85610; 82947; 80076; 85730; 81003; 84484; 70450; 70496; 70498; 71045; 96360; 99285; Q9967; J8597; J7030